=== PATIENT | female | born 1995 | race African-American/Black ===

== ENCOUNTER 2025-11-11 12:49 | Inpatient (IN) | payer SELFPAY ==
[~2025-11-11] VITALS: Ht 162.6 cm; Wt 61.7 kg
[2025-11-11 12:52] VITALS: O2SAT 98
[2025-11-11] MEDS: SODIUM CHLORIDE 0.9% 1,000 ML IV ONE (12:59)
[2025-11-11 13:54] LABS: BASOPHILS % 0.5 % (0.0-2.0); EOSINOPHILS % 0.7 % (0.0-5.0); HEMATOCRIT. 34.8 % (36.0-48.0); HEMOGLOBIN. 10.8 g/dL (12.0-16.0); LYMPHOCYTES % 20.9 % (20.0-50.0); MEAN PLATELET VOLUME 7.9 fl (7.4-10.4); MONOCYTES % 8.8 % (2.0-8.0); NEUTROPHILS % 69.1 % (40.0-76.0); PLATELET 344 x1000/uL (130-400); RED BLOOD CELL COUNT 4.12 mill/uL (4.2-5.4); RED CELL DISTRIBUTION WIDTH 19.0 % (11.6-14.6)
[2025-11-11 14:09] LABS: CREATININE 0.9 mg/dL (0.6-1.0); ETHANOL BLOOD < 10 mg/dL (<10); UREA NITROGEN BLOOD 7 mg/dL (9-23)
[2025-11-11 15:00] LABS: BG BASE EXCESS 0.6 mmol/L (-2.0-3.0); BG CARBOXYHEMOGLOBIN 2.7 % (0.5-1.5); BG DEOXYHEMOGLOBIN 6.7 % (0.0-5.0); BG FRACTION INSPIRED OXYGEN 21; BG HCO3 ACT 26.5 mmol/L (21.0-28.0); BG METHEMOGLOBIN 0.1 % (0.5-1.5); BG OXYGEN SATURATION 93.1 % (94.0-98.0); BG OXYHEMOGLOBIN 90.5 % (94.0-98.0); BG PCO2 47.3 mmHg (32.0-45.0); BG PH 7.366 (7.350-7.450); BG PO2 72.3 mmHg (83.0-108.0); BG SAMPLE SITE LEFT BRACHIAL; BG TOTAL HEMOGLOBIN 13.9 g/dL (12.0-16.0); BG VENT MODE ROOM AIR
[2025-11-11] MEDS ORDERED: LORAZEPAM 0.5MG TABLET PO PRN (21:30)
[2025-11-11] MEDS ORDERED: IPRATROPIUM/ALBUTEROL 0.5-3(2.5)MG/3ML NEB HHN PRN (21:30)
[2025-11-11] MEDS ORDERED: DOCUSATE SODIUM 100MG CAPSULE PO PRN (21:30)
[2025-11-11] MEDS ORDERED: ONDANSETRON HCL 4MG/2ML INJ IV PRN (21:30)
[2025-11-11] MEDS ORDERED: ACETAMINOPHEN 325MG TABLET PO PRN ×2 (21:30)
[2025-11-11] MEDS ORDERED: CLONIDINE 0.1MG TABLET PO PRN (21:30)
[2025-11-11] MEDS ORDERED: GUAIFENESIN 200MG/10ML SUGAR FREE UDC PO PRN (21:30)
[2025-11-11] MEDS: SODIUM CHLORIDE 0.45% 1,000 ML IV SCH (23:27)
[2025-11-12 08:00] VITALS: BP 118/64; PULSE 82; RESP 17; TEMP 36.3; O2SAT 98
[2025-11-12 09:02] LABS: BASOPHILS % 1.0 % (0.0-2.0); EOSINOPHILS % 1.5 % (0.0-5.0); HEMATOCRIT. 35.5 % (36.0-48.0); HEMOGLOBIN. 11.2 g/dL (12.0-16.0); LYMPHOCYTES % 44.4 % (20.0-50.0); MEAN PLATELET VOLUME 8.8 fl (7.4-10.4); MONOCYTES % 7.8 % (2.0-8.0); NEUTROPHILS % 45.3 % (40.0-76.0); PLATELET 344 x1000/uL (130-400); RED BLOOD CELL COUNT 4.20 mill/uL (4.2-5.4); RED CELL DISTRIBUTION WIDTH 18.9 % (11.6-14.6)
[2025-11-12 09:18] LABS: FOLIC ACID (FOLATE) SERUM 15.66 ng/mL (>5.38)
[2025-11-12 09:19] LABS: VITAMIN B12 SERUM 643 pg/mL (211-911)
[2025-11-12 09:21] LABS: CREATININE 0.9 mg/dL (0.6-1.0)
[2025-11-12 09:22] LABS: UREA NITROGEN BLOOD 5 mg/dL (9-23)
[2025-11-12 09:23] LABS: T4 FREE 1.19 ng/dL (0.89-1.76)
[2025-11-12 09:24] LABS: PHOSPHORUS 3.9 mg/dL (2.5-4.9)
[2025-11-12 12:00] VITALS: BP 121/71; PULSE 81; RESP 17; TEMP 36.4; O2SAT 97
[2025-11-12 16:00] VITALS: BP 114/60; PULSE 83; RESP 16; TEMP 36.4; O2SAT 97
[2025-11-12] MEDS: CEFTRIAXONE 1GM/50ML 50 ML IV SCH (16:36)
[2025-11-12 20:00] VITALS: BP 138/75; PULSE 78; RESP 18; TEMP 36.4; O2SAT 97
[2025-11-13] VITALS: BP 119/76; PULSE 65; RESP 19; TEMP 36.6; O2SAT 98
[2025-11-13 04:00] VITALS: BP 109/47; PULSE 60; RESP 18; TEMP 36.6; O2SAT 96
[2025-11-13] MEDS ORDERED: AZIT250T12 MT (07:49)
[2025-11-13 08:50] VITALS: BP 125/80; PULSE 77; RESP 17; TEMP 98
== END 2025-11-13 09:00 | disposition home or self-care (01) | DRG 52 ==
LOC: ER 12:58 → EDBD 14:12 → 5WST 14:12
PROVIDERS: ADMIT Internal Medicine; ATTEND Internal Medicine
DX: G92.9 Unspecified toxic encephalopathy (principal); Z59.00 Homelessness unspecified; D64.9 Anemia, unspecified; F15.10 Other stimulant abuse, uncomplicated; G92.8 Other toxic encephalopathy; R73.9 Hyperglycemia, unspecified; F19.10 Other psychoactive substance abuse, uncomplicated
CPT/HCPCS: 36415; 36600; 71045; 80048; 80307; 80320; 80329; 82010; 82375; 82550; 82607; 82746; 82805; 82962; 83540; 83550; 83735; 84100; 84439; 84443; 85025; 93005; 99285; J0696; J7030; G0480